=== PATIENT | male | born 1960 | race Caucasian/White ===

== ENCOUNTER 2024-11-26 12:35 | Emergency (ER) | payer OTHER ==
[~2024-11-26] VITALS: Ht 190.5 cm; Wt 134.1 kg
[2024-11-26 14:31] VITALS: BP 144/93
[2024-11-26 14:35] VITALS: TEMP 96.5; O2SAT 98
== END 2024-11-26 15:02 | disposition home or self-care (01) ==
LOC: M ED 12:35
DX: S00.93XA Contusion of unspecified part of head, initial encounter (principal); Y92.019 Unspecified place in single-family (private) house as the place of occurrence of the external cause; Y93.9 Activity, unspecified; Y99.9 Unspecified external cause status; W01.0XXA Fall on same level from slipping, tripping and stumbling without subsequent striking against object, initial encounter; I48.91 Unspecified atrial fibrillation; N18.4 Chronic kidney disease, stage 4 (severe)

== ENCOUNTER → 2025-07-30 | Outpatient (CLI) | payer OTHER | LOC: M SLEEP 20:00 | PROVIDERS: ATTEND Nurse Practitioner Adult Health | DX: G47.33 Obstructive sleep apnea (adult) (pediatric) (principal) ==